=== PATIENT | female | born 1935 | race Caucasian/White ===

== ENCOUNTER 2018-03-21 13:31 | Emergency (ER) | payer OTHER ==
[~2018-03-21] VITALS: Ht 152.4 cm; Wt 59.0 kg
== END 2018-03-21 17:19 | disposition home or self-care (01) ==
LOC: ER 13:31
DX: S40.011A Contusion of right shoulder, initial encounter (principal); W06.XXXA Fall from bed, initial encounter; Y93.89 Activity, other specified; Y92.89 Other specified places as the place of occurrence of the external cause; Y99.8 Other external cause status

== ENCOUNTER 2018-11-19 13:28 | Emergency (ER) | payer OTHER ==
[~2018-11-19] VITALS: Ht 152.4 cm; Wt 79.4 kg
[2018-11-19] MEDS ORDERED: LISINOPRIL5 MG (14:25)
[2018-11-19] MEDS ORDERED: XANAX0.25 MG (14:25)
[2018-11-19] MEDS ORDERED: ZOCOR20 MG (14:25)
[2018-11-19] MEDS ORDERED: FOSAMAX70 MG (14:26)
== END 2018-11-19 19:20 | disposition home or self-care (01) ==
LOC: ER 13:28
DX: S00.03XA Contusion of scalp, initial encounter (principal); W18.09XA Striking against other object with subsequent fall, initial encounter; Y93.89 Activity, other specified; Y92.012 Bathroom of single-family (private) house as the place of occurrence of the external cause; Y99.8 Other external cause status

== ENCOUNTER 2020-02-14 00:25 | Inpatient (IN) | payer OTHER ==
[~2020-02-14] VITALS: Ht 152.4 cm; Wt 61.2 kg
[~2020-02-14 00:25] MED LIST: FOSAMAX70 MG; LISINOPRIL5 MG; XANAX0.25 MG; ZOCOR20 MG
[2020-02-14] MEDS ORDERED: SYNTHROID75 MCG (00:47)
== END 2020-02-16 21:05 | disposition home or self-care (01) | DRG 379 ==
LOC: ER 00:25 → ICU-2 07:24 → SEC-K 07:24 → ICU-2 11:59
PROVIDERS: ADMIT Internal Medicine; ATTEND Internal Medicine
DX: K92.0 Hematemesis (principal); F41.8 Other specified anxiety disorders; I10 Essential (primary) hypertension

== ENCOUNTER 2020-02-19 02:57 | Inpatient (IN) | payer OTHER ==
[~2020-02-19] VITALS: Ht 149.9 cm; Wt 45.4 kg
[~2020-02-19 02:57] MED LIST changes: +SYNTHROID75 MCG
== END 2020-02-26 16:30 | disposition expired | DRG 378 ==
LOC: ER 02:57 → ICU-2 10:48
PROVIDERS: ADMIT Internal Medicine; ATTEND Internal Medicine
PROC: 02HV33Z Insertion of Infusion Device into Superior Vena Cava, Percutaneous Approach (ICD-10-PCS; 2020-02-20)
PROC: 30233N1 Transfusion of Nonautologous Red Blood Cells into Peripheral Vein, Percutaneous Approach (ICD-10-PCS; principal; 2020-02-22)
PROC: 3E0F7SF Introduction of Other Gas into Respiratory Tract, Via Natural or Artificial Opening (ICD-10-PCS; 2020-02-25)
PROC: 0BH17EZ Insertion of Endotracheal Airway into Trachea, Via Natural or Artificial Opening (ICD-10-PCS; 2020-02-26)
PROC: 5A12012 Performance of Cardiac Output, Single, Manual (ICD-10-PCS; 2020-02-26)
DX: K92.0 Hematemesis (principal); D62 Acute posthemorrhagic anemia; F41.8 Other specified anxiety disorders; I10 Essential (primary) hypertension; D69.6 Thrombocytopenia, unspecified; R57.1 Hypovolemic shock